=== PATIENT | male | born 1950 | race American Indian/Alaskan Native ===

== ENCOUNTER 2018-09-02 12:31 | Outpatient (CLI) | payer MEDICARE, BC ==
--- NOTE | 2018-09-02 12:56 | XRay Report ---
PA and lateral chest: Preoperative evaluation. The aorta is tortuous. The heart is normal in size. The lungs are clear with no vascular congestion. There is mild elevation of the lateral aspect of the left hemidiaphragm. Moderate periarticular spurs are identified in the mid and lower lumbar spine. No prior exam for comparison. Impression: No acute finding.
== END 2018-09-02 12:32 | disposition home or self-care (01) ==
LOC: SPVIMAG 12:31
PROVIDERS: ATTEND Internal Medicine
DX: Z01.818 Encounter for other preprocedural examination (principal)
CPT/HCPCS: 71046